=== PATIENT | female | born 1930 | race Caucasian/White ===

== ENCOUNTER → 2016-07-25 | Outpatient (CLI) | payer MEDICARE ==
[~2016-07-25] MED LIST: LEVO125T4 PO
[2016-07-25 13:46] LABS: BACTERIA, URINE OCC /hpf; BLOOD, URINE NEG (NEG); GLUCOSE,URINE NEG (NEG); HYALINE CAST, URINE 1 /lpf (RARE); KETONE, URINE NEG (NEG); NITRITE,URINE NEG (NEG); PH, URINE 5.5 (5.0-8.5); SQUAMOUS EPITHELIAL CELL URINE 8 /hpf (0-5); TRANSITIONAL EPI CELLS, URINE <1 /hpf; URINE COLOR YELLOW (YELLW/STRAW)
[2016-07-25 13:50] LABS: AUTOMATED NEUTROPHIL # 3.1 TH/MM3 (1.8-7.7); BASOPHIL % 0.1 % (0.0-2.0); HEMATOCRIT 41.3 % (35.0-46.0); HEMO FLAGS DIFF FINAL; LYMPH % 35.5 % (9.0-44.0); MEAN CELL VOLUME 86.7 FL (80.0-100.0); MEAN CORPUSCULAR HEMOGLOBIN 27.8 PG (27.0-34.0); MONO % 8.2 % (0.0-8.0); NEUT % 56.2 % (16.0-70.0); PLATELET COUNT 188 TH/MM3 (150-450); RED BLOOD COUNT 4.76 MIL/MM3 (4.00-5.30); RED CELL DISTRIBUTION WIDTH 13.9 % (11.6-17.2); WHITE BLOOD COUNT 5.5 TH/MM3 (4.0-11.0)
[2016-07-25 14:13] LABS: ANION GAP 6 MEQ/L (5-15); AST (GOT) 15 U/L (15-37); BICARBONATE 31.4 MEQ/L (21.0-32.0); BLOOD UREA NITROGEN 10 MG/DL (7-18); CHLORIDE 107 MEQ/L (98-107); GLOMERULAR FILTRATION RATE 65 ML/MIN (>89); GLUCOSE,FASTING 93 MG/DL (74-99); POTASSIUM 4.3 MEQ/L (3.5-5.1); SODIUM (NA) 144 MEQ/L (136-145)
[2016-07-25 14:26] LABS: ALKALINE PHOSPHATASE 58 U/L (45-117); ALT (GPT) 19 U/L (10-53); LDL CHOLESTEROL 92 MG/DL (0-99); TOTAL BILIRUBIN ADULT 0.5 MG/DL (0.2-1.0)
== END ==
LOC: PLAB 08:08
DX: E03.9 Hypothyroidism, unspecified (principal); E78.00 Pure hypercholesterolemia, unspecified
CPT/HCPCS: 36415; 80053; 80061; 81001; 84443; 85025

== ENCOUNTER → 2017-01-26 | Outpatient (CLI) | payer MEDICARE ==
[2017-01-26 13:56] LABS: AUTOMATED NEUTROPHIL # 3.2 TH/MM3 (1.8-7.7); BASOPHIL % 0.1 % (0.0-2.0); HEMATOCRIT 39.8 % (35.0-46.0); HEMO FLAGS DIFF FINAL; LYMPH % 34.2 % (9.0-44.0); LYMPHOCYTE # 1.9 TH/MM3 (1.0-4.8); MEAN CELL VOLUME 87.8 FL (80.0-100.0); MEAN CORPUSCULAR HEMOGLOBIN 29.7 PG (27.0-34.0); MEAN CORPUSCULAR HGB CONC 33.9 % (32.0-36.0); MONO % 7.9 % (0.0-8.0); NEUT % 57.8 % (16.0-70.0); PLATELET COUNT 184 TH/MM3 (150-450); RED BLOOD COUNT 4.53 MIL/MM3 (4.00-5.30); WHITE BLOOD COUNT 5.5 TH/MM3 (4.0-11.0)
[2017-01-26 14:12] LABS: ANION GAP 4 MEQ/L (5-15); AST (GOT) 16 U/L (15-37); BICARBONATE 29.6 MEQ/L (21.0-32.0); BLOOD UREA NITROGEN 8 MG/DL (7-18); CHLORIDE 109 MEQ/L (98-107); GLOMERULAR FILTRATION RATE 68 ML/MIN (>89); POTASSIUM 3.8 MEQ/L (3.5-5.1); SODIUM (NA) 143 MEQ/L (136-145)
[2017-01-26 14:25] LABS: ALKALINE PHOSPHATASE 61 U/L (45-117); ALT (GPT) 19 U/L (10-53); FREE T4 2.23 NG/DL (0.76-1.46); GLUCOSE,FASTING 87 MG/DL (74-99); HDL CHOLESTEROL 39.6 MG/DL (40.0-60.0); LDL CHOLESTEROL 78 MG/DL (0-99); TOTAL BILIRUBIN ADULT 0.5 MG/DL (0.2-1.0)
== END ==
LOC: PLAB 08:47
PROVIDERS: ATTEND Family Medicine
DX: E78.5 Hyperlipidemia, unspecified (principal); E03.9 Hypothyroidism, unspecified
CPT/HCPCS: 36415; 80053; 80061; 84439; 84443; 85025

== ENCOUNTER → 2017-05-11 | Outpatient (CLI) | payer MEDICARE ==
[2017-05-11 13:57] LABS: FREE T4 1.83 NG/DL (0.76-1.46)
== END ==
LOC: PLAB 09:19
PROVIDERS: ATTEND Family Medicine
DX: E03.9 Hypothyroidism, unspecified (principal)
CPT/HCPCS: 36415; 84439; 84443

== ENCOUNTER 2017-07-11 12:22 | Emergency (ER) | payer MEDICARE ==
[~2017-07-11] VITALS: Ht 162.6 cm; Wt 77.0 kg
[2017-07-11 12:28] VITALS: BP 160/72; PULSE 55; RESP 16; TEMP 98.1; O2SAT 97
[2017-07-11] MEDS ORDERED: LEVO100T5 PO (12:50)
--- NOTE | 2017-07-11 13:13 | PD ---
HPI Chief Complaint: Dizziness Time Seen by Provider: 12:52 Travel History International Travel<30 days: No Contact w/Intl Traveler<30days: No Traveled to known affect area: No History of Present Illness HPI This 86-year-old female is complaining of dizziness. She says that she has been dizzy since February. The dizziness is worse when she moves or moves her head. She does not have any tinnitus. Today she thought she was going to pass out. Today she is having a dull headache which is somewhat diffuse located at the top of the head she rates as an 8 out of 10. It is also worse with movement. She has a history of hypothyroidism and is on Synthroid. She had been on [address] Waite. She recently changed physicians and they have been tapering her Synthroid on the basis of blood work and as the Synthroid is being tapered she feels she is getting more dizzy and she thinks the decrease in the Synthroid may be to blame. She has brought her blood work with her and her TSH was low and T4 was elevated prior to them cutting back the Synthroid. He has no history of heart disease or stroke PFSH Past Medical History High Cholesterol: Yes Cerebrovascular Accident: Yes (POSSIBLE CA) Coronary Artery Disease: Yes Diminished Hearing: Yes ([place]) Thyroid Disease: Yes (HYPO) Influenza Vaccination: Yes ?: Not Menopausal: Yes Past Surgical History Cholecystectomy: Yes Hysterectomy: Yes (PARTIAL) Joint Replacement: Yes ([place]) Social History Alcohol Use: No Tobacco Use: No Substance Use: No Allergies-Medications (Allergen,Severity, Reaction): Coded Allergies: aspirin (Verified Allergy, Severe, 07/11/17) UNCOATED, FOAMING AT THE MOUTH Reported Meds & Prescriptions Reported Meds & Active Scripts Active Reported Levothyroxine (Levothyroxine Sodium) 100 Mcg Tab 100 Mcg PO DAILY Review of Systems General / Constitutional: No: Fever, Chills Eyes: No: Diploplia HENT: Positive: Headaches, Vertigo, Lightheadedness Cardiovascular: No: Chest Pain or Discomfort, Palpitations Respiratory: No: Cough, Shortness of Breath Gastrointestinal: No: Nausea, Vomiting Genitourinary: No: Urgency, Frequency Musculoskeletal: No: Myalgias, Arthralgias Neurologic: Positive: Weakness, Dizziness, No: Syncope Psychiatric: No: Anxiety, Depression Endocrine: No: Heat Intolerance Hematologic/Lymphatic: No: Easy Bruising Physical Exam Narrative GENERAL: Well-developed female SKIN: Focused skin assessment warm/dry. HEAD: Atraumatic. Normocephalic. EYES: Pupils equal and round. No scleral icterus. No injection or drainage. ENT: No nasal bleeding or discharge. Mucous membranes pink and moist. NECK: Trachea midline. No JVD. CARDIOVASCULAR: Regular rate and rhythm. No murmur appreciated. RESPIRATORY: No accessory muscle use. Clear to auscultation. Breath sounds equal bilaterally. GASTROINTESTINAL: Abdomen soft, non-tender, nondistended. Hepatic and splenic margins not palpable. MUSCULOSKELETAL: No obvious deformities. No clubbing. No cyanosis. No edema. NEUROLOGICAL: Awake and alert. No obvious cranial nerve deficits. Motor grossly within normal limits. Normal speech. PSYCHIATRIC: Appropriate mood and affect; insight and judgment normal. Data Data Last Documented VS Vital Signs Date Time Temp Pulse Resp B/P (MAP) Pulse Ox O2 Delivery O2 Flow Rate FiO2 07/11/17 14:00 53 18 158/72 (100) 98 Room Air 07/11/17 12:28 98.1 Orders Orders Complete Blood Count With Diff (07/11/17 13:08) Basic Metabolic Panel (Bmp) (07/11/17 13:08) Westergren Sedimentation Rate (07/11/17 13:08) Thyroid Stimulating Hormone (07/11/17 13:08) Ct Brain W/O Iv Contrast(Rout) (07/11/17 13:08) Meclizine (Antivert) (07/11/17 13:15) Labs Laboratory Tests Test 07/11/17 13:23 White Blood Count 6.2 TH/MM3 Red Blood Count 4.66 MIL/MM3 Hemoglobin 13.0 GM/DL Hematocrit 39.6 % Mean Corpuscular Volume 85.0 FL Mean Corpuscular Hemoglobin 27.9 PG Mean Corpuscular Hemoglobin Concent 32.7 % Red Cell Distribution Width 13.3 % Platelet Count 189 TH/MM3 Mean Platelet Volume 8.9 FL Neutrophils (%) (Auto) 62.8 % Lymphocytes (%) (Auto) 31.4 % Monocytes (%) (Auto) 5.2 % Eosinophils (%) (Auto) 0.1 % Basophils (%) (Auto) 0.5 % Neutrophils # (Auto) 4.0 TH/MM3 Lymphocytes # (Auto) 1.9 TH/MM3 Monocytes # (Auto) 0.3 TH/MM3 Eosinophils # (Auto) 0.0 TH/MM3 Basophils # (Auto) 0.0 TH/MM3 CBC Comment DIFF FINAL Differential Comment Erythrocyte Sedimentation Rate 6 mm/hr Blood Urea Nitrogen 12 MG/DL Creatinine 0.91 MG/DL Random Glucose 93 MG/DL Calcium Level 8.6 MG/DL Sodium Level 143 MEQ/L Potassium Level 3.8 MEQ/L Chloride Level 109 MEQ/L Carbon Dioxide Level 28.2 MEQ/L Anion Gap 6 MEQ/L Estimat Glomerular Filtration Rate 58 ML/MIN Thyroid Stimulating Hormone 3rd Gen 0.040 uIU/ML MDM Medical Decision Making Medical Screen Exam Complete: Yes Emergency Medical Condition: Yes Medical Record Reviewed: Yes Differential Diagnosis Differential includes dizziness, vertigo, electrolyte imbalance, anemia, subdural Narrative Course She is complaining of headache today so a CT and sed rate were done which are both normal. Her electrolytes are normal. Her TSH is low which would suggest that she is getting excessive thyroid. She is convinced that her dizziness is related to her new physician tapering her thyroid. She had been on 175 mcg and is now on 100 and is convinced this is the etiology of her dizziness. She was given a trial of meclizine which did not help. She will be released Diagnosis Primary Impression: Dizzinesses Additional Instructions: Follow-up with your primary care physician Disposition: 01 DISCHARGE HOME Condition: Stable Onofre Phillips MD July 11, 2017 13:13
[2017-07-11] MEDS ORDERED: MECLIZINE HCL 25 MG TAB PO ONE (13:15)
[2017-07-11 13:28] LABS: BASOPHIL % 0.5 % (0.0-2.0); EOSINOPHIL % 0.1 % (0.0-4.0); HEMATOCRIT 39.6 % (35.0-46.0); LYMPH % 31.4 % (9.0-44.0); LYMPHOCYTE # 1.9 TH/MM3 (1.0-4.8); MEAN CORPUSCULAR HEMOGLOBIN 27.9 PG (27.0-34.0); MEAN CORPUSCULAR HGB CONC 32.7 % (32.0-36.0); MEAN PLATELET VOLUME 8.9 FL (7.0-11.0); MONO % 5.2 % (0.0-8.0); MONOCYTE # 0.3 TH/MM3 (0-0.9); NEUT % 62.8 % (16.0-70.0); PLATELET COUNT 189 TH/MM3 (150-450); RED BLOOD COUNT 4.66 MIL/MM3 (4.00-5.30); RED CELL DISTRIBUTION WIDTH 13.3 % (11.6-17.2); WHITE BLOOD COUNT 6.2 TH/MM3 (4.0-11.0)
[2017-07-11 13:39] LABS: BICARBONATE 28.2 MEQ/L (21.0-32.0); CALCIUM 8.6 MG/DL (8.5-10.1)
[2017-07-11 13:43] LABS: CREATININE 0.91 MG/DL (0.50-1.00)
--- NOTE | 2017-07-11 13:53 | RADRPT ---
EXAM DATE/TIME: 07/11/2017 13:32 [facility] COMPARISON: No previous studies available for comparison. INDICATIONS : Dizziness x 4 months. Cephalgia today. RADIATION DOSE: 51.84 CTDIvol (mGy) MEDICAL HISTORY : Hypothyroidism. Cerebrovascular disease. Cardiovascular disease SURGICAL HISTORY : Cholecystectomy. Hysterectomy. ENCOUNTER: Initial ACUITY: 4 - 6 months PAIN SCALE: 8/10 LOCATION: cranial TECHNIQUE: Multiple contiguous axial images were obtained of the head. Using automated exposure control and adj ustment of the mA and/or kV according to patient size, radiation dose was kept as low as reasonably a chievable to obtain optimal diagnostic quality images. DICOM format image data is available electro nically for review and comparison. FINDINGS: CEREBRUM: The ventricles are normal for age. No evidence of midline shift, mass lesion, hemorrhage or acute in farction. No extra-axial fluid collections are seen. POSTERIOR FOSSA: The cerebellum and brainstem are intact. The 4th ventricle is midline. The cerebellopontine angle i s unremarkable. EXTRACRANIAL: The visualized portion of the orbits is intact. SKULL: The calvaria is intact. No evidence of skull fracture. Hyperostosis internus frontalis, an anatomic variant. CONCLUSION: Negative exam. No acute intracranial process. Yosef Mari MD on July 11, 2017 at 13:49 Board Certified Radiologist. This report was verified electronically.
[2017-07-11 14:00] VITALS: BP 158/72; PULSE 53; RESP 18; O2SAT 98
== END 2017-07-11 14:58 | disposition home or self-care (01) ==
LOC: PHED 12:22
DX: R42 Dizziness and giddiness (principal); R51 Headache; R53.1 Weakness; E78.00 Pure hypercholesterolemia, unspecified; I25.10 Atherosclerotic heart disease of native coronary artery without angina pectoris; E03.9 Hypothyroidism, unspecified; Z79.899 Other long term (current) drug therapy; Z86.73 Personal history of transient ischemic attack (TIA), and cerebral infarction without residual deficits
CPT/HCPCS: 70450; 80048; 84443; 85025; 85652; 99284